=== PATIENT | male | born 1970 | race Caucasian/White ===

== ENCOUNTER 2016-11-30 00:21 | Emergency (ER) | payer OTHER, BC ==
[~2016-11-30] VITALS: Ht 180.3 cm; Wt 99.0 kg
[2016-11-30] MEDS ORDERED: LISINOPRIL20 MG PO (01:41)
[2016-11-30] MEDS ORDERED: ASPIRIN81 M2 PO (01:41)
[2016-11-30] MEDS ORDERED: SKELAXIN800 MG PO (02:01)
[2016-11-30] MEDS ORDERED: MOTRIN600 MG PO (02:01)
[2016-11-30 02:17] VITALS: BP 131/78
== END 2016-11-30 02:18 | disposition home or self-care (01) ==
LOC: EME 00:21
DX: S39.012A Strain of muscle, fascia and tendon of lower back, initial encounter (principal); X58.XXXA Exposure to other specified factors, initial encounter; Y99.0 Civilian activity done for income or pay; M54.16 Radiculopathy, lumbar region
CPT/HCPCS: 99281; 99284